=== PATIENT | female | born 1970 | race Caucasian/White ===

== ENCOUNTER → 2019-05-25 | Outpatient (REF) | payer OTHER | LOC: M WUC 09:54 | PROVIDERS: ATTEND Physician Assistant | DX: N30.01 Acute cystitis with hematuria (principal) ==

== ENCOUNTER → 2020-05-30 | Outpatient (CLI) | payer SELFPAY | LOC: M LABSMTC 11:44 | PROVIDERS: ATTEND Pediatrics | DX: Z20.822 Contact with and (suspected) exposure to COVID-19 (principal) ==

== ENCOUNTER → 2020-06-19 | Outpatient (CLI) | payer SELFPAY | LOC: M LABSMTC 11:13 | PROVIDERS: ATTEND Pediatrics | DX: Z20.822 Contact with and (suspected) exposure to COVID-19 (principal) ==